=== PATIENT | female | born 1995 | race Caucasian/White ===

== ENCOUNTER 2021-07-10 00:27 | Emergency (ER) | payer OTHER ==
[~2021-07-10] VITALS: Ht 157.5 cm; Wt 52.2 kg
--- NOTE | 2021-07-10 00:59 | NUR ---
BIBSELF C/O R WRIST PAIN X1 DAY. HAD SURGERY DUE TO BROKEN WRIST. BREATHING EVEN AND UNLABORED. ALL V/S STABLE MD WAS AT BEDIDE FOR EVAL.
[2021-07-10] MEDS ORDERED: KETOROLAC TROMETHAMINE INJ 60 MG/2 ML VIAL IM ONE (01:30)
[2021-07-10] MEDS ORDERED: KETOROLAC TROMETHAMINE INJ 30 MG/ML VIAL ONE (01:32)
--- NOTE | 2021-07-10 02:02 | NUR ---
RAD AT BED SIDE
--- NOTE | 2021-07-10 03:48 | NUR ---
Patient discharged to home in stable condition. Written and verbal after care instructions given. Patient verbalizes understanding of instruction.
[2021-07-10 04:12] VITALS: BP 124/74
== END 2021-07-10 04:13 | disposition home or self-care (01) ==
LOC: ER 00:27
DX: S64.11XA Injury of median nerve at wrist and hand level of right arm, initial encounter (principal); E78.00 Pure hypercholesterolemia, unspecified; Z98.890 Other specified postprocedural states; X58.XXXA Exposure to other specified factors, initial encounter; Y93.89 Activity, other specified; Y92.89 Other specified places as the place of occurrence of the external cause; Y99.8 Other external cause status
CPT/HCPCS: 73110; 96372; 99283; J1885